=== PATIENT | male | born 1955 | race Caucasian/White ===

== ENCOUNTER → 2017-07-17 12:31 | Outpatient (CLI) | payer BC, SELFPAY ==
--- NOTE | 2017-07-17 12:36 | US_ITS ---
US thyroid HISTORY: ITS.REASON: THYROID NODULE ORDERING PHYSICIAN: Alex Preston MD PATIENT AGE: 62 years COMPARISON: None available at this institution FINDINGS: Right lobe: 4.6 x 1.9 x 2.1 cm. Homogeneous echogenicity without discrete nodule Left lobe: 4.7 x 2 x 2.1 cm with homogeneous echogenicity without discrete nodule Isthmus: There is an ill-defined area of decreased echogenicity in the central aspect of the isthmus at 3 mm. IMPRESSION: 1. Thyromegaly. 2. 3 mm somewhat ill-defined nodule of the isthmus
== END ==
PROVIDERS: PCP Physician Assistant; Visit Provider Otolaryngology
DX: E04.1 Nontoxic single thyroid nodule (principal)
CPT/HCPCS: 76536

== ENCOUNTER → 2018-01-06 08:26 | Outpatient (CLI) | payer MEDICARE, BC, SELFPAY ==
[2018-01-06 14:29] LABS: Blood Urea Nitrogen 24 mg/dL (7-18); Creatinine,Serum 1.31 mg/dL (0.70-1.30); Estimated Glomerular Filt Rate 55 ml/min (>60); GFR (African American) 67 ML/MIN (>60)
== END ==
PROVIDERS: Visit Provider Otolaryngology
DX: J30.9 Allergic rhinitis, unspecified (principal); J32.0 Chronic maxillary sinusitis
CPT/HCPCS: 36415; 82565; 84520

== ENCOUNTER → 2018-01-11 13:27 | Outpatient (CLI) | payer MEDICARE, BC, SELFPAY ==
--- NOTE | 2018-01-11 13:30 | CT_ITS ---
CT sinus wo/w con CLINICAL INDICATION: ITS.REASON: sinusitis ORDERING PHYSICIAN: Alex Preston MD PATIENT AGE: 62 years COMPARISON: None TECHNIQUE:Axial images obtained with sagittal and coronal reformats without and with contrast enhancement. All CT scans at the facility use one or more dose reduction, viz: automated exposure control, ma/kV adjustment per patient size (including targeted exams where dose is matched to indication, i.e. head), or iterative reconstruction technique. FINDINGS: There is mild mucosal thickening of the left maxillary sinus. Retention cyst or polyp involving the right maxillary sinus inferiorly at 19 mm and superiorly at 7 mm. The right ostomy or complex is patent. Left OMC is narrowed with either mucous or edema. There is a small retention cyst along the medial wall left maxillary sinus at 6 mm superiorly and also inferiorly at 6 mm. The frontal sinuses have a small retention cyst or polyp on the left posteriorly at 3 mm. The ethmoid and sphenoid sinuses are unremarkable. No sinus air-fluid level. No enhancing sinus masses. The nasopharynx has an unremarkable appearance as do the orbits. Postsurgical changes involve the left mastoid sinus prior antrectomy. There is opacification of the left mastoid air cells inferiorly. There is minimal leftward nasal septal deviation anteriorly. IMPRESSION: 1. Mild chronic paranasal sinus inflammatory changes with scattered maxillary retention cysts and mild mucosal thickening of left maxillary sinus. 2. No air-fluid levels. 3. Prior left mastoidectomy with mild opacification of left mastoid air cells inferiorly.
== END ==
PROVIDERS: PCP Physician Assistant; Visit Provider Otolaryngology
DX: H65.21 Chronic serous otitis media, right ear (principal); J30.9 Allergic rhinitis, unspecified
CPT/HCPCS: 70488; Q9967

== ENCOUNTER → 2018-09-23 07:40 | Outpatient (CLI) | payer MEDICARE, BC, SELFPAY ==
--- NOTE | 2018-09-23 07:43 | CI_ITS ---
Cerebrovascular Exam Indications: 785.9 Bruit. IMPRESSIONS 1. The bilateral vertebral arteries are patent with normal antegrade flow. 2. Study suggests less than 20% stenosis involving the right internal carotid artery. 3. Study suggests less than 20% stenosis involving the left internal carotid artery. History: Risk factors: Extobacco use. Hyperlipidemia. Carotid duplex study. Complete study and Doppler flow study including spectral analysis, color and pendleton scale imaging. Height: Height: 182.9cm. Height: 72in. Weight: Weight: 83.9kg. Weight: 184.6lb. Body mass index: BMI: 25.1kg/m^2. Body surface area: BSA: 2.07m^2. Location: Vascular laboratory. Patient status: Outpatient. Tables: Arterial flow: + +--------+--------+ Location V sys V ed + +--------+--------+ Right CCA - proximal 82.6cm/s 19.5cm/s + +--------+--------+ Right CCA - distal 96.4cm/s 23cm/s + +--------+--------+ Right ECA 80.1cm/s 14.8cm/s + +--------+--------+ Right ICA - proximal 60.3cm/s 26.8cm/s + +--------+--------+ Right ICA - mid 65.3cm/s 20.9cm/s + +--------+--------+ Right ICA - distal 75.3cm/s 33.5cm/s + +--------+--------+ Right vertebral 27.6cm/s 14.2cm/s + +--------+--------+ Left CCA - proximal 88.1cm/s 20.4cm/s + +--------+--------+ Left CCA - distal 68.4cm/s 16.5cm/s + +--------+--------+ Left ECA 78cm/s 15.8cm/s + +--------+--------+ Left ICA - proximal 59.7cm/s 14.1cm/s + +--------+--------+ Left ICA - mid 64.6cm/s 27.4cm/s + +--------+--------+ Left ICA - distal 62.2cm/s 22.1cm/s + +--------+--------+ Left vertebral 31.9cm/s 12.6cm/s + +--------+--------+ Velocity ratios: + + + + + + Right, V sys Right, V ed Left, V sys Left, V ed + + + + + + Max ICA/dist CCA 0.78 1.46 0.94 1.66 + + + + + + (Report amended ) Electronically signed by: Gurvinder Nicole [id number]
[2018-09-23 13:34] LABS: Anion Gap 12.5 mEq/L (5-15); Blood Urea Nitrogen 22 mg/dL (7-18); Calcium 9.3 mg/dL (8.5-10.1); Carbon Dioxide 27 mmol/L (21.0-32.0); Chloride 107 mmol/L (98-107); Creatinine,Serum 1.19 mg/dL (0.70-1.30); Estimated Glomerular Filt Rate 62 ml/min (>60); GFR (African American) 75 ML/MIN (>60); Glucose 91 mg/dL (74-106); Potassium 4.5 mmoL/L (3.5-5.1); Sodium 142 mmol/L (136-145)
== END ==
PROVIDERS: PCP Physician Assistant; Visit Provider Internal Medicine Cardiovascular Disease
DX: I10 Essential (primary) hypertension (principal); I95.9 Hypotension, unspecified; J44.9 Chronic obstructive pulmonary disease, unspecified; K21.9 Gastro-esophageal reflux disease without esophagitis; R06.00 Dyspnea, unspecified; R09.89 Other specified symptoms and signs involving the circulatory and respiratory systems; R42 Dizziness and giddiness; Z85.01 Personal history of malignant neoplasm of esophagus; Z87.891 Personal history of nicotine dependence
CPT/HCPCS: 36415; 80048; 93306; 93880